=== PATIENT | female | born 1995 | race Caucasian/White ===

== ENCOUNTER 2016-10-29 09:27 | Emergency (ER) | payer MEDICAID, OTHER ==
[2016-10-29] MEDS ORDERED: Amoxicillin 500 MG Cap ONE (10:00)
[2016-10-29 10:08] VITALS: BP 113/69
--- NOTE | 2016-10-29 10:26 | EDM.PDOC ---
ED HPI GENERAL MEDICAL PROBLEM - General Chief Complaint: General Stated Complaint: Sore Throat, body aches Time Seen by Provider: 10/29/16 10:15 Source of Information: Reports: Patient History Limitations: Reports: No Limitations - History of Present Illness INITIAL COMMENTS - FREE TEXT/NARRATIVE: Patient is a 21 year old female at 17 weeks gestation who has had sinus congestion, pain and a sorethroat for the last 2 days that is getting worse. No fever or chills but she is coughing up some sputum that is light green at times. Onset Date: 10/28/16 Onset Time: 07:00 Duration: Day(s): (2) Location: Reports: Other (Sore throat and sinus pain.) Quality: Reports: Sharp Severity: Moderate (Pain up to 7/10 with a cough.) Improves with: Reports: None Worsens with: Reports: None Context: Reports: Other (17 weeks .) Associated Symptoms: Reports: No Other Symptoms - Related Data Allergies Allergy/AdvReac Type Severity Reaction Status Date / Time No Known Allergies Allergy Verified 10/29/16 10:14 ED ROS GENERAL - Review of Systems Review Of Systems: See Below HEENT: Reports: Sinus Problem, Throat Pain Respiratory: Reports: Cough Cardiovascular: Reports: No Symptoms Endocrine: Reports: No Symptoms GI/Abdominal: Reports: No Symptoms : Reports: No Symptoms Musculoskeletal: Reports: No Symptoms Skin: Reports: No Symptoms Neurological: Reports: No Symptoms Psychiatric: Reports: No Symptoms ED EXAM, GENERAL - Physical Exam Exam: See Below Exam Limited By: No Limitations General Appearance: Alert, WD/WN, No Apparent Distress Eye Exam: Bilateral Eye: EOMI, Normal Fundi, Normal Inspection, PERRL Ears: Normal External Exam, Normal Canal, Hearing Grossly Normal, Normal TMs Ear Exam: Bilateral Ear: Auricle Normal, Canal Normal, TM normal Nose: Normal Inspection, Normal Mucosa, No Blood Throat/Mouth: Other (Pain over the maxillary sinues and erythema in the pharynx. ) Head: Atraumatic, Normocephalic Neck: Normal Inspection, Supple, Non-Tender, Full Range of Motion Respiratory/Chest: No Respiratory Distress, Lungs Clear, Normal Breath Sounds, No Accessory Muscle Use, Chest Non-Tender Cardiovascular: Normal Peripheral Pulses, Regular Rate, Rhythm, No Edema, No Gallop, No JVD, No Murmur, No Rub Back Exam: Normal Inspection, Full Range of Motion, NT Extremities: Normal Inspection, Normal Range of Motion, Non-Tender, Normal Capillary Refill, No Pedal Edema Neurological: Alert, Oriented, CN II-XII Intact, Normal Cognition, Normal Gait, Normal Reflexes, No Motor/Sensory Deficits Psychiatric: Normal Affect Skin Exam: Warm, Dry, Intact, Normal Color, No Rash Lymphatic: No Adenopathy Course - Vital Signs Text/Narrative:: Uneventful ED course. She had a negative rapid strep but she will be treated for a sinusitis with Amoxicillin 500 mg po tid x 10 days, saltwater nasal spray and gargles, lozenges, tylenol 500 mg po tid, rest, steam and recheck with her OB doctor as scheduled. Last Recorded V/S: Last Vital Signs Temp 37.1 C 10/29/16 10:03 Pulse 104 H 10/29/16 10:03 Resp 20 10/29/16 10:03 BP 113/69 10/29/16 10:03 Pulse Ox 100 10/29/16 10:03 - Orders/Labs/Meds Orders: Active Orders 24 hr Category Date Time Status STREP SCREEN A RAPID [RM] Stat Lab 10/29/16 10:15 Ordered Departure - Departure Time of Disposition: 10:31 Disposition: Home, Self-Care 01 Condition: Good Clinical Impression: Sinusitis - Discharge Information Forms: ED Department Discharge - My Orders Last 24 Hours: My Active Orders 10/29/16 10:15 STREP SCREEN A RAPID [RM] Stat - Assessment/Plan Last 24 Hours: My Active Orders 10/29/16 10:15 STREP SCREEN A RAPID [RM] Stat
== END 2016-10-29 10:34 | disposition home or self-care (01) ==
LOC: LB.ED 09:27
DX: O99.511 Diseases of the respiratory system complicating pregnancy, first trimester (principal); J32.9 Chronic sinusitis, unspecified; Z3A.17 17 weeks gestation of pregnancy
CPT/HCPCS: 87430; 99283; A9270

== ENCOUNTER 2017-05-06 13:34 | Observation (INO) | payer MEDICAID ==
[2017-05-06] MEDS ORDERED: Ondansetron 4 MG Tab.DIS PO STA (14:41)
--- NOTE | 2017-05-06 14:47 | EDM.PDOC ---
ED HPI GENERAL MEDICAL PROBLEM - General Chief Complaint: General Stated Complaint: DIARHEA Time Seen by Provider: 05/06/17 14:15 Source of Information: Reports: Patient History Limitations: Reports: No Limitations - History of Present Illness INITIAL COMMENTS - FREE TEXT/NARRATIVE: According to patient she woke up in the morning today and started to feel sick , she started to have violent episodes of vomiting. She claims she has had about 15 episodes of vomiting and had undigested food particles to clear liquid. Also she claims she has had about 5 bouts of watery diarrhea. No blood or mucus in the stools. No abdominal cramping. No fever, but feels chills. Feels weak and tired. no abdominal bloating. no belching or burping. pt claims she ate the same food as other family members and was home cooked. Still complaints of nausea, but no vomiting episodes in the emergency room. Onset: Today Onset Date: 05/06/17 Onset Time: 06:00 Duration: Getting Worse Severity: Moderate Improves with: Reports: None Worsens with: Reports: None Associated Symptoms: Reports: Nausea/Vomiting, Weakness. Denies: Confusion, Chest Pain, Cough, Diaphoresis, Fever/Chills, Headaches, Malaise, Rash, Seizure , Shortness of Breath, Syncope - Related Data Allergies Allergy/AdvReac Type Severity Reaction Status Date / Time No Known Allergies Allergy Verified 05/06/17 14:20 Home Meds: Home Meds NK [No Known Home Meds] 05/06/17 [History] ED ROS GENERAL - Review of Systems Review Of Systems: See Below Constitutional: Reports: Chills, Weakness. Denies: Fever, Night Sweats, Diaphoresis HEENT: Denies: Eye Discharge, Rhinitis, Sinus Problem, Throat Pain, Throat Swelling Respiratory: Denies: Shortness of Breath, Wheezing, Cough, Sputum Cardiovascular: Denies: Chest Pain, Edema, Lightheadedness GI/Abdominal: Reports: Diarrhea, Nausea, Vomiting. Denies: Abdominal Pain, Anorexia : Denies: Dysuria, Flank Pain, Frequency, Urgency, Urinary Retention Musculoskeletal: Denies: Joint Pain, Joint Swelling Skin: Denies: Bruising, Pruritis, Rash ED EXAM, GENERAL - Physical Exam Exam: See Below Exam Limited By: No Limitations General Appearance: Alert, WD/WN, No Apparent Distress, Other (ill appearing) Eye Exam: Bilateral Eye: EOMI, PERRL Ears: Normal External Exam, Normal Canal, Hearing Grossly Normal, Normal TMs Ear Exam: Bilateral Ear: Auricle Normal, Canal Normal, TM normal Nose: Normal Inspection, Normal Mucosa, No Blood Throat/Mouth: Normal Inspection, Normal Lips, Normal Teeth, Normal Gums, Normal Oropharynx, Normal Voice, No Airway Compromise, Other (oral mucosa and tongue are dry) Head: Atraumatic, Normocephalic Neck: Normal Inspection, Supple, Non-Tender, Full Range of Motion Respiratory/Chest: No Respiratory Distress, Lungs Clear, Normal Breath Sounds, No Accessory Muscle Use, Chest Non-Tender Cardiovascular: Normal Peripheral Pulses, Regular Rate, Rhythm, No Edema, No Gallop, No JVD, No Murmur, No Rub GI/Abdominal: Soft, Non-Tender, No Organomegaly, No Distention, No Abnormal Bruit, No Mass, Abnormal Bowel Sounds (hyperactive). No: Distended, Rigid, Rebound, Tender Extremities: Normal Inspection, Normal Range of Motion, Non-Tender, Normal Capillary Refill, No Pedal Edema Neurological: Alert, Oriented, CN II-XII Intact, Normal Cognition, Normal Gait, Normal Reflexes, No Motor/Sensory Deficits Skin Exam: Warm, Intact Course - Vital Signs Text/Narrative:: Pt does appear ill and also dehydrated from acute gastroenteritis. Her CBC shows white count of 16.7 with 95% neutrophils. also her sodium is low at 132. She has acute gastroenteritis. She did receive oral zofran which has helped some with her nausea. considering her acute symptoms and electrolyte imbalance. I have admitted patient for observation. Felix start with NS bolus of 500 followed by NS with 20 meq KCl at 125cc/hr. Will recheck CB to make sure the white count is improving, her elevated white count might be inflammatory reaction. Will have her on IV zofran for nausea. also will keep her on clear liquids orally. - Orders/Labs/Meds Labs: Laboratory Tests 05/06/17 05/06/17 Range/Units 14:30 14:30 WBC 16.7 H (4.0-11.0) K/uL RBC 5.31 (3.80-5.80) M/uL Hgb 15.9 (11.5-16.5) g/dL Hct 46.8 (37.0-47.0) % MCV 88 (76-96) fL MCH 29.9 (27.0-32.0) pg MCHC 34.0 (31.0-35.0) g/dL RDW 12.2 (11.0-16.0) % Plt Count 227 (150-500) K/uL MPV 8.9 (6.0-10.0) fL Neut % (Auto) 95.0 H (45.0-70.0) % Lymph % (Auto) 1.4 L (20.0-40.0) % [place] % (Auto) 2.2 L (3.0-10.0) % Eos % (Auto) 0.1 L (1.0-5.0) % Baso % (Auto) 0.1 (0.0-0.5) % Neut # (Auto) 15.90 H (2.00-7.50) K/uL Lymph # (Auto) 0.23 L (1.50-4.00) K/uL [place] # (Auto) 0.36 (0.20-0.80) K/uL Eos # (Auto) 0.01 L (0.04-0.40) K/uL Baso # (Auto) 0.01 L (0.02-0.10) K/uL Sodium 132 L (136-145) mmol/L Potassium 3.9 (3.5-5.1) mmol/L Chloride 101 (98-107) mmol/L Carbon Dioxide 24.9 (21.0-32.0) mmol/L Anion Gap 10.0 (5.0-15.0) mmol/L BUN 23 (8-26) mg/dL Creatinine 1.00 (0.55-1.02) mg/dL Est Cr Clr Drug Dosing TNP Estimated GFR (MDRD) > 60 (>60) MLS/MIN BUN/Creatinine Ratio 23.0 (6-25) Glucose 130 H (74-100) mg/dL Calcium 9.2 (8.5-10.1) mg/dL Meds: Medications Discontinued Medications Generic Name Dose Route Start Last Admin Trade Name Freq PRN Reason Stop Dose Admin Ondansetron HCl 4 mg 05/06/17 14:41 Zofran Odt PO 05/06/17 14:42 ONETIME STA Departure - Departure Time of Disposition: 15:30 Disposition: Refer to Observation Condition: Fair Clinical Impression: Acute gastroenteritis - Discharge Information - Problem List & Annotations (1) Acute gastroenteritis SNOMED Code(s): 55795760 Code(s): K52.9 - NONINFECTIVE GASTROENTERITIS AND COLITIS, UNSPECIFIED Status: Acute Current Visit: Yes - Problem List Review Problem List Initiated/Reviewed/Updated: Yes - Assessment/Plan Admission H&P: Please use this note as an admission H&P Assessment:: Acute gastroenteritis Plan: Pt does appear ill and also dehydrated from acute gastroenteritis. Her CBC shows white count of 16.7 with 95% neutrophils. also her sodium is low at 132. She has acute gastroenteritis. She did receive oral zofran which has helped some with her nausea. considering her acute symptoms and electrolyte imbalance. I have admitted patient for observation. Felix start with NS bolus of 500 followed by NS with 20 meq KCl at 125cc/hr. Will recheck CB to make sure the white count is improving, her elevated white count might be inflammatory reaction. Will have her on IV zofran for nausea. also will keep her on clear liquids orally.
[2017-05-06] MEDS ORDERED: Sodium Chloride 0.9% 10 ML Syringe FLUSH PRN (15:33)
[2017-05-06] MEDS ORDERED: Ondansetron 4 MG/2 ML SDV IV PRN (15:33)
[2017-05-06] MEDS ORDERED: Sodium Chloride 0.9% 500 ML IV SCH (15:45)
[2017-05-06] MEDS: NS + KCl 20mEq/L 1,000 ML IV SCH (17:30)
[2017-05-06] MEDS ORDERED: Acetaminophen 325 MG Tab ONE (17:42)
[2017-05-06] MEDS ORDERED: Acetaminophen 325 MG Tab PO PRN (17:57)
[2017-05-07] MEDS: NS + KCl 20mEq/L 1,000 ML IV SCH (01:20)
[2017-05-07] MEDS ORDERED: Sodium Chloride 0.9% 500 ML IV ONE (02:40)
[2017-05-07 05:56] VITALS: BP 84/58
--- NOTE | 2017-05-07 13:04 | PCM.DCSUM1 ---
Discharge Summary - Hospital Course Free Text/Narrative:: Pt was admitted with acute Gastroenteritis with dehydration. She was given a bolus os 500cc IV Normal saline followed by NS with 20 meq KCL at 125cc/hr for hydration. Also she did receive zofran for nausea. Her white count was elevated at 16.7 with 95% neutrophils, which does appear like inflammatory response, but did want to monitor to make sure it is not infective.Pt was admitted for observation. Apparently pt did not have any more vomiting, but she did have 2 bouts of small watery foul smelling stools. Stool culture and Stool C-diff was ordered. She did spike low grade temp. Over night her BP did drop in low 90s systolic, but pt was awake adn alert and feeling fine. Blood cultures were ordered considering her initially white count and her low BP. In the morning pt claims that she has been feeling fine and strong, has not had any more vomiting or diarrhea. Clinical exam today is normal. Her white counts is down from 16.7 K to 6.8 K and her neutrophils are down from 95% to 77%. renal functions and electrolytes are normal. Pt reassured, she probably had acute gastroenteritis which is improving with normal hydration. I have given her script for zofran prn for nausea. advised clear liquid diet for another 24 hrs and advance diet as tolerated. Avoid dairy products for 24 hrs. Will followup with her stool results and blood culture Brief History: Pt presented to emergency room with severe nausea, vomiting and diarrhea yesterday. she did appear sick and dehydrated from loss of fluid. Pt was admitted for IV hydration and monitoring her symptoms. - Discharge Data Discharge Date: 05/07/17 Discharge Disposition: Home, Self-Care 01 Condition: Good - Discharge Diagnosis/Problem(s) (1) Acute gastroenteritis SNOMED Code(s): 61991086 ICD Code: K52.9 - NONINFECTIVE GASTROENTERITIS AND COLITIS, UNSPECIFIED Status: Acute Current Visit: Yes - Patient Instructions Diet: Clear Liquid Diet Fluid Restriction: 2000 mL Activity: As Tolerated Driving: May Drive Today Showering/Bathing: May Shower - Discharge Plan Home Medications: Home Meds NK [No Known Home Meds] 05/06/17 [History] Patient Handouts: Viral Gastroenteritis, Adult, [id number], Sinusitis, Adult , [id number] Forms: ED Department Discharge Referrals: PCP,None [Primary Care Provider] - - Discharge Summary/Plan Comment DC Time >30 min.: Yes - General Info Date of Service: 05/07/17 Functional Status: Reports: Tolerating Diet, Ambulating, Urinating - Review of Systems General: Denies: Fever, Weakness, Fatigue HEENT: Denies: Headaches, Sinus Congestion, Sore Throat, Rhinitis Pulmonary: Denies: Shortness of Breath, Pleuritic Chest Pain, Cough, Sputum Cardiovascular: Denies: Chest Pain, Lightheadedness Gastrointestinal: Denies: Abdominal Pain, Decreased Appetite, Diarrhea, Melena, Nausea, Vomiting Genitourinary: Denies: Frequency, Burning Musculoskeletal: Denies: Joint Pain, Joint Swelling Skin: Denies: Pallor, Diaphoresis, Bruising, Pruritis Neurological: Denies: Dizziness, Headache, Numbness, Syncope, Tingling, Weakness - Patient Data Vitals - Most Recent: Last Vital Signs Temp 99.5 F 05/07/17 05:55 Pulse 95 05/07/17 05:55 Resp 15 05/07/17 05:55 BP 84/58 L 05/07/17 05:55 Pulse Ox 97 05/07/17 05:55 Weight - Most Recent: 69.49 kg I&O - Last 24 hours: Intake & Output 05/06/17 05/07/17 05/07/17 22:59 06:59 14:59 Intake Total 650 3270 Output Total 350 750 Balance 300 2520 Lab Results - Last 24 hrs: Laboratory Results - last 24 hr 05/07/17 05/07/17 Range/Units 07:15 07:15 WBC 6.8 D (4.0-11.0) K/uL RBC 3.88 (3.80-5.80) M/uL Hgb 11.8 D (11.5-16.5) g/dL Hct 34.7 L D (37.0-47.0) % MCV 89 (76-96) fL MCH 30.4 (27.0-32.0) pg MCHC 34.0 (31.0-35.0) g/dL RDW 12.1 (11.0-16.0) % Plt Count 169 D (150-500) K/uL MPV 8.8 (6.0-10.0) fL Neut % (Auto) 77.0 H (45.0-70.0) % Lymph % (Auto) 13.6 L (20.0-40.0) % [place] % (Auto) 8.9 (3.0-10.0) % Eos % (Auto) 0.1 L (1.0-5.0) % Baso % (Auto) 0.4 (0.0-0.5) % Neut # (Auto) 5.25 (2.00-7.50) K/uL Lymph # (Auto) 0.93 L (1.50-4.00) K/uL [place] # (Auto) 0.61 (0.20-0.80) K/uL Eos # (Auto) 0.01 L (0.04-0.40) K/uL Baso # (Auto) 0.03 (0.02-0.10) K/uL Sodium 144 (136-145) mmol/L Potassium 3.8 (3.5-5.1) mmol/L Chloride 108 H (98-107) mmol/L Carbon Dioxide 23.3 (21.0-32.0) mmol/L Anion Gap 16.5 H (5.0-15.0) mmol/L BUN 17 D (8-26) mg/dL Creatinine 0.83 (0.55-1.02) mg/dL Est Cr Clr Drug Dosing 99.53 mL/min Estimated GFR (MDRD) > 60 (>60) MLS/MIN BUN/Creatinine Ratio 20.5 (6-25) Glucose 89 D (74-100) mg/dL Calcium 7.4 L (8.5-10.1) mg/dL ROHAN Results - Last 24 hrs: Microbiology 05/07/17 07:15 Clostridium difficile (PCR) - Final Stool / Feces Med Orders - Current: Current Medications Acetaminophen (Tylenol) 650 mg PO Q4H PRN PRN Reason: Fever Potassium Chloride/Sodium Chloride (Normal Saline With 20 Meq Kcl) 1,000 mls @ 150 mls/hr IV ASDIRECTED RICCARDO Last Infusion: 05/07/17 06:05 Dose: 150 mls/hr Ondansetron HCl (Zofran) 4 mg IV Q6H PRN PRN Reason: Nausea/Vomiting Last Admin: 05/06/17 17:30 Dose: 4 mg Sodium Chloride (Saline Flush) 10 ml FLUSH ASDIRECTED PRN PRN Reason: Keep Vein Open Discontinued Medications Acetaminophen (Tylenol) Confirm Administered Dose 650 mg .ROUTE .STK-MED ONE Stop: 05/06/17 17:43 Last Admin: 05/06/17 17:45 Dose: 650 mg Sodium Chloride (Normal Saline) 500 mls @ 999 mls/hr IV .BOLUS RICCARDO Last Admin: 05/06/17 16:15 Dose: 999 mls/hr Sodium Chloride (Normal Saline) 500 mls @ 999 mls/hr IV .BOLUS ONE Stop: 05/07/17 03:10 Last Admin: 05/07/17 02:43 Dose: 999 mls/hr Ondansetron HCl (Zofran Odt) 4 mg PO ONETIME STA Stop: 05/06/17 14:42 Last Admin: 05/06/17 14:30 Dose: 4 mg - Exam General: Reports: Alert, Oriented HEENT: Reports: Pupils Equal, Pupils Reactive, EOMI, Mucous Membr. Moist/[place] Neck: Reports: Supple Lungs: Reports: Clear to Auscultation, Normal Respiratory Effort Cardiovascular: Reports: Regular Rate, Regular Rhythm GI/Abdominal Exam: Normal Bowel Sounds, Soft, Non-Tender, No Organomegaly, No Distention, No Abnormal Bruit, No Mass, Pelvis Stable Back Exam: Reports: Normal Inspection, Full Range of Motion Extremities: Normal Inspection Skin: Reports: Warm, Dry, Intact *Q Meaningful Use (DIS) - VTE *Q VTE Criteria *Q: - Stroke *Q Stroke Criteria *Q: - AMI *Q AMI Criteria *Q:
== END 2017-05-07 12:30 | disposition home or self-care (01) ==
LOC: LB.ED 13:34 → UNDOADMOB 15:15 → LB.MS 15:15
PROVIDERS: ADMIT Family Medicine; ATTEND Family Medicine
DX: K52.9 Noninfective gastroenteritis and colitis, unspecified (principal); Z79.899 Other long term (current) drug therapy
CPT/HCPCS: 36415; 80048; 85025; 87040; 87493; 99284; A9270; J2405; J3480; J7040; 96361; 96374; G0378